=== PATIENT | male | born 1950 | race Caucasian/White ===

== ENCOUNTER → 2016-09-26 | Outpatient (CLI) | payer OTHER ==
[~2016-09-26] VITALS: Ht 167.6 cm; Wt 145.0 kg
[~2016-09-26] MED LIST: CHLORHEXIDINE GLUCONATE 2 % 1 PACK (2 CLOTHS) TOPICAL PRN; INSULIN HUMAN REGULAR 1,000 UNITS/10 ML VIAL SQ PRN; LACTATED RINGER'S 1000 ML IV PRN; METF500T PO; METOPROLOL TARTRATE 25 MG TAB PO PRN; NAPR500 PO; POVIDONE IODINE 5% (ANTISEPSIS KIT) 4 APPLICATIONS EACH NARE PRN; PROPOFOL 200 MG/20 ML AMP IV PUSH ONE; SODIUM CHLORID 0.9% 500 ML IV PRN
[2016-09-26 12:47] VITALS: BP 148/86; PULSE 78; RESP 18; TEMP 98.6; O2SAT 95
[2016-09-26 15:47] VITALS: BP 153/82; PULSE 66; RESP 20; TEMP 98.1; O2SAT 96
--- NOTE | 2016-09-26 16:23 | MR ---
cc: MI BLANCO DATE: 09/26/2016 PREOPERATIVE DIAGNOSIS Screening colonoscopy. POSTOPERATIVE DIAGNOSIS Screening colonoscopy. PROCEDURE Total colonoscopy. ANESTHESIA Monitored anesthesia care SURGEON Dr. Blanco. OPERATIVE FINDINGS This patient was referred for screening colonoscopy. At colonoscopy no polyps or mucosal lesions were seen. He did have sigmoid diverticulosis. He was morbidly obese and therefore he was done as an outpatient at the hospital. OPERATIVE PROCEDURE: The patient was placed today in the left lateral position, given intravenous monitored anesthesia care and the colonoscope was introduced through the anal canal taken to the rectum, the rectosigmoid colon, descending colon, transverse colon, ascending colon to cecum. Ileocecal valve was seen, as well as base the appendix. Scope sequentially withdrawn to sequentially look at the mucosa, getting a fairly good look the mucosa there was some cloudy fluid throughout his colon / especially in the dependent portions and in the flexures. It was aspirated mostly clean and a fairly good look was obtained. No lesions were seen other than sigmoid diverticulosis. The scope was eventually withdrawn. The patient tolerated the procedure well and left the gastrointestinal laboratory in good condition. MD DELLA Martin/jessie /3:16 PM /4:16 PM
--- NOTE | 2016-09-27 13:12 | EKG ---
Date Performed: 09/26/2016 Time Performed: 13:31:24 PTAGE: 66 years EKG: Sinus rhythm NORMAL ECG NO PREVIOUS TRACING DOCTOR: Maged Rodarte Interpretating Date/Time 09/27/2016 13:10:09
== END ==
LOC: HEND 12:09
PROVIDERS: ATTEND Colon & Rectal Surgery
DX: Z12.11 Encounter for screening for malignant neoplasm of colon (principal); K57.30 Diverticulosis of large intestine without perforation or abscess without bleeding; E66.01 Morbid (severe) obesity due to excess calories; Z01.810 Encounter for preprocedural cardiovascular examination
CPT/HCPCS: 00810; 45378; 93005; J7120